=== PATIENT | female | born 1940 | race Caucasian/White ===

== ENCOUNTER 2018-02-02 17:47 | Emergency (ER) | payer MEDICARE ==
[~2018-02-02 17:47] MED LIST: Adacel (T-DAP) 0.5 ML VIAL ONE
--- NOTE | 2018-02-02 18:51 | RAD ---
TWO VIEW CHEST: HISTORY: Trauma with injury to chest. Fall prior to arrival. COMPARISON: 10/21/2017 FINDINGS: The lung lawson are clear. The heart and mediastinum are unremarkable. Vascular markings are normal . Osseous structures appear intact. IMPRESSION: No acute finding. POS: [facility]
--- NOTE | 2018-02-02 19:38 | CT ---
CT HEAD WITHOUT CONTRAST: INDICATIONS: Fall one hour prior to arrival with head injury. COMPARISON: Head CT of 11/01/2013. TECHNIQUE: Multiple tomograms obtained through the head without IV enhancement. FINDINGS: Mild cortical volume loss. Mild to moderate chronic ischemic white matter changes. No evidence of i ntracranial hemorrhage. No evidence of mass or infarct. The sinuses and mastoids are well aerated. IMPRESSION: There is cortical atrophy and chronic ischemic white matter change. No evidence of acute process. POS: [facility]
--- NOTE | 2018-02-02 19:41 | CT ---
CT CERVICAL SPINE: INDICATIONS: Fall with injury to neck. TECHNIQUE: Multiple axial tomograms obtained through the cervical spine with multiplanar reconstruction. FINDINGS: The cervical vertebrae maintain normal height and alignment. There are mild degenerative changes of the cervical spine. No evidence of acute fracture identified. IMPRESSION: 1. Mild degenerative changes of the cervical spine. 2. No evidence of acute fracture. POS: [facility]
--- NOTE | 2018-02-02 19:44 | CT ---
CT FACIAL BONES: INDICATIONS: Fall with injury to face. TECHNIQUE: Multiple axial tomograms obtained through the facial bones with multiplanar reconstruction. FINDINGS: There is suggestion of soft tissue swelling and a tiny gas pocket over the left nasal bone. However, no definite nasal bone fracture identified. The orbits appear intact. The lamina papyracea appear intact. The paranasal sinuses are well aerated with no mucosal edema. The maxilla appears intact. The zygoma appear intact. The mandible appears intact. IMPRESSION: 1. Mild soft tissue swelling over the nasal ridge and left nasal bones, and there are tiny gas pocke ts in the soft tissues over the left nasal bones. There is slight flattening of the nasal ridge on t he coronal imaging; however, no definite nasal bone fracture identified. 2. No other evidence of facial bone fracture. POS: [facility]
== END 2018-02-02 19:45 | disposition home or self-care (01) ==
LOC: MADERS 17:47
DX: S00.31XA Abrasion of nose, initial encounter (principal); I10 Essential (primary) hypertension; J44.9 Chronic obstructive pulmonary disease, unspecified; E11.9 Type 2 diabetes mellitus without complications; F32.9 Major depressive disorder, single episode, unspecified; Z87.891 Personal history of nicotine dependence; Z23 Encounter for immunization; W01.0XXA Fall on same level from slipping, tripping and stumbling without subsequent striking against object, initial encounter
CPT/HCPCS: 70450; 70486; 71046; 72125; 90471; 90715

== ENCOUNTER 2020-05-09 15:43 | Outpatient (CLI) | payer MEDICARE ==
--- NOTE | 2020-05-09 16:09 | RAD ---
Left hip 2 views HISTORY: Hip pain. FINDINGS: Mild joint space narrowing, osteophytosis, and subchondral sclerosis. Mildly shallow acetab ulum. Femoral head contour is maintained. No acute fracture, dislocation, or aggressive osseous erosions. IMPRESSION : Mild osteoarthritic changes left hip.
== END 2020-05-09 15:44 | disposition home or self-care (01) ==
LOC: MADRAD 15:43
PROVIDERS: ATTEND Nurse Practitioner Family
DX: M25.552 Pain in left hip (principal); M16.12 Unilateral primary osteoarthritis, left hip

== ENCOUNTER 2020-07-14 09:15 | Emergency (ER) | payer MEDICARE ==
[2020-07-14] MEDS ORDERED: Sodium Chloride 0.9% 0 ML ONE (17:47)
== END 2020-07-14 10:20 | disposition home or self-care (01) ==
LOC: MADERS 09:15
DX: K59.00 Constipation, unspecified (principal); E11.9 Type 2 diabetes mellitus without complications; I10 Essential (primary) hypertension; J44.9 Chronic obstructive pulmonary disease, unspecified; F32.9 Major depressive disorder, single episode, unspecified; Z87.891 Personal history of nicotine dependence; Z79.82 Long term (current) use of aspirin; Z79.899 Other long term (current) drug therapy
CPT/HCPCS: 99283; J7050

== ENCOUNTER 2021-08-05 17:00 | Emergency (ER) | payer MEDICARE ==
[2021-08-05] MEDS ORDERED: Ketorolac Tromethamine 30 MG/ML VIAL ONE (17:33)
[2021-08-05] MEDS ORDERED: Lidocaine-Prilocaine 2.5% Cream 5 GM TUBE ONE (18:44)
[2021-08-05] MEDS ORDERED: Lidocaine 5% Patch TD SCH (19:00)
[2021-08-06] MEDS ORDERED: Lidocaine Patch Removal TOP SCH (07:00)
== END 2021-08-05 20:05 | disposition home or self-care (01) ==
LOC: MADERS 17:00
DX: S20.20XA Contusion of thorax, unspecified, initial encounter (principal); W19.XXXA Unspecified fall, initial encounter; I10 Essential (primary) hypertension; E11.9 Type 2 diabetes mellitus without complications; J44.9 Chronic obstructive pulmonary disease, unspecified; I25.2 Old myocardial infarction; Z87.891 Personal history of nicotine dependence
CPT/HCPCS: 70450; 71250; 96372; J1885

== ENCOUNTER 2022-01-18 15:31 | Emergency (ER) | payer MEDICARE | END 2022-01-18 16:04 | disposition home or self-care (01) | LOC: MADERS 15:31 | DX: H00.014 Hordeolum externum left upper eyelid (principal); I10 Essential (primary) hypertension; E11.9 Type 2 diabetes mellitus without complications; J44.9 Chronic obstructive pulmonary disease, unspecified; I25.2 Old myocardial infarction; R00.0 Tachycardia, unspecified; Z86.73 Personal history of transient ischemic attack (TIA), and cerebral infarction without residual deficits; Z87.891 Personal history of nicotine dependence | CPT/HCPCS: 99282 ==

== ENCOUNTER 2022-07-22 13:33 | Emergency (ER) | payer MEDICARE ==
[2022-07-22 17:06] LABS: #Basophils 0.1 thou/uL (0.0-0.2); #Eosinphils 0.5 thou/uL (0.0-0.7); #Lymphocytes 1.5 thou/uL (1.20-3.40); #Monocytes 0.9 thou/uL (0.11-0.59); #Neutrophils 10.3 thou/uL (1.40-6.50); %Basophils 0.9 % (0.0-1.0); %Eosinophils 3.6 % (0.0-10.0); %Lymphocytes 11.5 % (21.0-51.0); %Monocytes 6.4 % (0.0-10.0); %Neutrophils 77.7 % (42.0-75.0); Hemoglobin 12.1 g/dL (12.0-16.0); Mean Corpuscular HGB CONC 32.1 g/dL (32.0-36.0); Mean Corpuscular Hemoglobin 26.5 pg (27.0-31.0); Mean Corpuscular Volume 82.4 fl (78.0-98.0); Mean Platelet Volume 6.8 fL (7.4-10.4); Platelet Count 441 10x3/uL (130-400); RBC Distribution Width 13.7 % (11.5-14.5); Red Blood Cell (RBC) Count 4.59 mill/uL (4.20-5.40); White Blood Cell (WBC) Count 13.3 10x3/uL (4.8-10.8)
[2022-07-22 17:26] LABS: ALT (SGPT) 17 U/L (8-55); AST (SGOT) 19 U/L (5-34); Albumin 3.8 g/dL (3.4-4.8); Alkaline Phosphatase 97 U/L (40-110); Anion Gap 13 mmol/L (10-20); BUN (Urea Nitrogen) 29 mg/dL (9.8-20.1); Bilirubin, Total 0.3 mg/dL (0.2-1.2); Calc. Creatinine Clearance 0 mL/min (70-130); Calcium 9.1 mg/dL (7.8-10.44); Carbon Dioxide 27 mmol/L (23-31); Estimated GFR 34; Globulin 3.7 g/dL (2.4-3.5); Glucose 153 mg/dL (83-110); Protein, Total 7.5 g/dL (5.8-8.1)
[2022-07-22 17:28] LABS: Chloride 102 mmol/L (98-107); Potassium 4.2 mmol/L (3.5-5.1); Sodium 138 mmol/L (136-145)
== END 2022-07-22 18:05 | disposition home or self-care (01) ==
LOC: MADERS 13:33
DX: R09.02 Hypoxemia (principal); I10 Essential (primary) hypertension; E11.9 Type 2 diabetes mellitus without complications; J44.9 Chronic obstructive pulmonary disease, unspecified; Z87.891 Personal history of nicotine dependence
CPT/HCPCS: 36415; 71046; 80053; 83605; 85025; 85379; 87040; 93005